=== PATIENT | female | born 1995 | race Caucasian/White ===

== ENCOUNTER 2017-12-13 19:56 | Emergency (ER) | payer BC ==
[2017-12-13 21:11] LABS: #Basophils 0.1 thou/uL (0.0-0.2); #Eosinphils 0.2 thou/uL (0.0-0.7); #Lymphocytes 2.3 thou/uL (1.20-3.40); #Monocytes 0.9 thou/uL (0.11-0.59); #Neutrophils 4.8 thou/uL (1.40-6.50); %Basophils 0.9 % (0.0-1.0); %Eosinophils 2.9 % (0.0-10.0); %Lymphocytes 27.6 % (21.0-51.0); %Monocytes 10.6 % (0.0-10.0); %Neutrophils 58.1 % (42.0-75.0); Mean Corpuscular Hemoglobin 27.6 pg (27.0-31.0); Mean Corpuscular Volume 81.2 fL (78.0-98.0); Mean Platelet Volume 9.7 fL (7.4-10.4); Platelet Count 224 thou/uL (130-400); Red Blood Cell (RBC) Count 4.73 mill/uL (4.20-5.40); White Blood Cell (WBC) Count 8.2 thou/uL (4.8-10.8)
--- NOTE | 2017-12-13 21:14 | RAD ---
TWO VIEW CHEST: INDICATIONS: Chest pain. FINDINGS: The lungs are mildly hyperinflated, without evidence of consolidation, effusion, or discrete pneumoth orax. The cardiac silhouette is accentuated by patient rotation and scoliotic curvature. There is m ild dextroscoliosis of the thoracic spine. IMPRESSION: No definite acute process. POS: [facility]
[2017-12-13 21:26] LABS: ALT (SGPT) 24 U/L (8-55); AST (SGOT) 17 U/L (5-34); Albumin 4.4 g/dL (3.5-5.0); Alkaline Phosphatase 44 U/L (40-150); Anion Gap 11 mmol/L (10-20); BUN (Urea Nitrogen) 5 mg/dL (7.0-18.7); Bilirubin, Total 0.3 mg/dL (0.2-1.2); Calc. Creatinine Clearance 0 mL/min (70-130); Calcium 9.4 mg/dL (7.8-10.44); Carbon Dioxide 26 mmol/L (22-29); Chloride 107 mmol/L (98-107); Estimated GFR-MDRD 84; Globulin 3.4 g/dL (2.4-3.5); Glucose 88 mg/dL (70-105); Potassium 3.8 mmol/L (3.5-5.1); Protein, Total 7.8 g/dL (6.0-8.3); Sodium 140 mmol/L (136-145)
[2017-12-13 21:28] LABS: CKMB 0.3 ng/mL (0-6.6); Troponin I Less than 0.010 ng/mL (< 0.028)
[2017-12-13 21:30] LABS: BHCG - Serum Negative (NEGATIVE); Pregs Control Background? CLEAR/WHITE (CLR/WHITE); Pregs Control Bar Appear? YES (CONTROL BAR)
== END 2017-12-13 21:54 | disposition home or self-care (01) ==
LOC: SCSER 19:56
DX: R07.9 Chest pain, unspecified (principal); F41.9 Anxiety disorder, unspecified; Z79.899 Other long term (current) drug therapy
CPT/HCPCS: 36415; 71046; 80053; 82553; 84484; 84703; 85025; 85379; 93005

== ENCOUNTER 2018-11-13 23:23 | Emergency (ER) | payer BC ==
[2018-11-13 23:48] LABS: Bilirubin Negative (Negative); Blood, Urine Negative (Negative); Clarity Clear (Clear); Glucose, Urine (Dipstick) Negative (Negative); Leukocyte Negative (Negative); Nitrite Negative (Negative); Protein, Urine (Dipstick) Negative (Neg-Trace); Urobilinogen 0.2 mg/dL (Less than 2)
[2018-11-13 23:49] LABS: Pregnancy Test - Urine (BHCG) Negative (Negative); Pregu Control Bar Appear? YES (CONTROL BAR)
[2018-11-13 23:50] LABS: Pregu Control Background? CLEAR/WHITE (CLR/WHITE)
[2018-11-13] MEDS ORDERED: Dicyclomine 20 MG TAB ONE (23:55)
[2018-11-13] MEDS ORDERED: Ibuprofen 800 MG TAB ONE (23:55)
== END 2018-11-14 | disposition home or self-care (01) ==
LOC: SCSER 23:23
DX: R10.30 Lower abdominal pain, unspecified (principal); R11.0 Nausea; F41.9 Anxiety disorder, unspecified; Z79.899 Other long term (current) drug therapy
CPT/HCPCS: 81003; 81025; 99284

== ENCOUNTER 2020-03-15 11:44 | Emergency (ER) | payer BC ==
[2020-03-15] MEDS ORDERED: Rabies Vaccine Human 2.5 UNITS VIAL IM ONE (12:15)
[2020-03-15] MEDS ORDERED: Ibuprofen 600 MG TAB PO SCH (12:15)
[2020-03-15] MEDS ORDERED: Boostrix 0.5 ML (Tdap) VIAL IM ONE (12:15)
[2020-03-15] MEDS ORDERED: Boostrix 0.5 ML (Tdap) VIAL ONE (12:24)
[2020-03-15] MEDS ORDERED: Ibuprofen 200 MG TAB ONE (12:24)
--- NOTE | 2020-03-15 14:12 | RAD ---
Exam: Right wrist 3 views: HISTORY: Injury from a dog bite with swelling COMPARISON: None FINDINGS: Soft tissue swelling of the dorsal aspect of the hand and wrist. No acute fracture or dislocation. No overt foreign body. IMPRESSION: Prominent soft tissue swelling without overt osseous abnormality or foreign body.
--- NOTE | 2020-03-15 14:14 | RAD ---
Exam: Right hand 3 views: HISTORY: Injury and swelling following a dogbite, COMPARISON: None FINDINGS: Prominent soft tissue swelling particularly over the dorsal aspect of the hand and wrist. No evidence for fracture, dislocation, or other significant acute osseous abnormality. No evidence for foreign body. IMPRESSION: Soft tissue swelling without other acute process.
== END 2020-03-15 14:32 | disposition home or self-care (01) ==
LOC: ERS 11:44
DX: S61.451A Open bite of right hand, initial encounter (principal); Z23 Encounter for immunization; W54.0XXA Bitten by dog, initial encounter
CPT/HCPCS: 90376; 90471; 90472; 90675; 90715; 96372